=== PATIENT | female | born 1950 | race Hispanic/Latino ===

== ENCOUNTER → 2018-09-07 | Outpatient (CLI) | payer OTHER | END | disposition home or self-care (01) | LOC: OIH 11:01 | PROVIDERS: ATTEND Internal Medicine | DX: I10 Essential (primary) hypertension (principal); M47.815 Spondylosis without myelopathy or radiculopathy, thoracolumbar region | CPT/HCPCS: 71046 ==

== ENCOUNTER → 2019-08-31 | Outpatient (CLI) | payer OTHER | END | disposition home or self-care (01) | LOC: OIH 14:26 | PROVIDERS: ATTEND Internal Medicine | DX: I10 Essential (primary) hypertension (principal) | CPT/HCPCS: 71046 ==

== ENCOUNTER → 2019-11-07 | Outpatient (CLI) | payer OTHER | END | disposition home or self-care (01) | LOC: OIH 12:54 | PROVIDERS: ATTEND Internal Medicine | DX: R05 Cough (principal) | CPT/HCPCS: 71046 ==

== ENCOUNTER → 2020-01-11 | Outpatient (CLI) | payer OTHER | END | disposition home or self-care (01) | LOC: OIH 10:30 | PROVIDERS: ATTEND Internal Medicine | DX: M48.02 Spinal stenosis, cervical region (principal); M54.12 Radiculopathy, cervical region; M40.40 Postural lordosis, site unspecified; M25.78 Osteophyte, vertebrae | CPT/HCPCS: 72040 ==

== ENCOUNTER → 2022-03-25 | Outpatient (CLI) | payer OTHER ==
[~2022-03-25] MED LIST: REGADENOSON 0.4 MG/5 ML PF SYG IVP SCH
== END | disposition home or self-care (01) ==
LOC: RAH 09:03
PROVIDERS: ATTEND Internal Medicine
DX: I20.8 Other forms of angina pectoris (principal); I20.9 Angina pectoris, unspecified
CPT/HCPCS: 78452; 96374; 93017; J2785; A9500 ×2

== ENCOUNTER 2022-04-17 02:00 | Observation (INO) | payer OTHER ==
[~2022-04-17] VITALS: Ht 154.9 cm; Wt 65.8 kg
[2022-04-17 02:25] LABS: BASOPHILS % (AUTO) 1.3 % (0.0-5.0); EOSINOPHILS % (AUTO) 8.7 % (0.0-8.0); HEMATOCRIT 35.8 % (36-48); MEAN CORPUSCULAR HEMOGLOBIN 30.2 pg (27.0-33.0); MEAN CORPUSCULAR HGB CONC 33.2 g/dL (32.0-36.0); MEAN CORPUSCULAR VOLUME 90.9 fL (79-99); MONOCYTES % (AUTO) 7.6 % (3.0-13.0); NEUTROPHILS % (AUTO) 33.2 % (40.0-77.0); PLATELET COUNT (AUTO) 221 K/uL (130-400); RED BLOOD CELL COUNT(AUTO) 3.94 MIL/uL (4.00-5.50); RED CELL DISTRIBUTION WIDTH 13.3 % (11.0-15.5); WHITE BLOOD COUNT (AUTO) 9.9 K/uL (4.8-10.8)
[2022-04-17] MEDS ORDERED: ASPIRIN 81MG CHEW TAB PO ONE (02:30)
[2022-04-17 02:33] LABS: CREATININE 1.1 mg/dL (0.5-1.5); POTASSIUM 3.8 mmol/L (3.5-5.1)
[2022-04-17 02:36] LABS: INR 0.93 (0.85-1.15); PROTHROMBIN TIME 9.9 SEC (9.6-11.6)
[2022-04-17 02:37] LABS: ALBUMIN 3.7 g/dL (3.5-5.0)
[2022-04-17] MEDS ORDERED: OMEG-148 PO (03:38)
[2022-04-17] MEDS ORDERED: AMLO-257 PO (03:38)
[2022-04-17] MEDS ORDERED: SPIR25TA PO (03:38)
[2022-04-17] MEDS ORDERED: LISI10TA24 PO (03:38)
[2022-04-17] MEDS ORDERED: ROSU10TA28 PO (03:38)
[2022-04-17] MEDS ORDERED: MORPHINE 2 MG SYG IVP PRN (04:30)
[2022-04-17] MEDS ORDERED: ONDANSETRON 4MG INJ IVP PRN (04:30)
[2022-04-17 05:11] VITALS: BP 165/81
[2022-04-17 05:43] LABS: APPEARANCE,URINE CLEAR (CLEAR); BILIRUBIN,URINE NEGATIVE (NEGATIVE); COLOR,URINE YELLOW (YELLOW); GLUCOSE, URINE (UA) NEGATIVE (NEGATIVE); KETONES,URINE NEGATIVE (NEGATIVE); LEUKOCYTE ESTERASE ,URINE TRACE (NEGATIVE); NITRATE,URINE NEGATIVE (NEGATIVE); OCCULT BLOOD,URINE NEGATIVE (NEGATIVE); PROTEIN,URINE NEGATIVE (NEGATIVE); UROBILINOGEN,URINE 0.2 mg/dL (0.2-1.0)
[2022-04-17 05:55] LABS: RBC,URINE None Seen /HPF (0-1)
[2022-04-17 05:56] LABS: BACTERIA,URINE None Seen /HPF (None Seen); SQUAMOUS EPITHELIAL CELL,UR Rare /HPF (0-2)
[2022-04-17 07:11] VITALS: BP 150/59
[2022-04-17] MEDS ORDERED: ENOXAPARIN SODIUM 60 MG/0.6 ML SQ SCH (09:00)
[2022-04-17] MEDS ORDERED: LISINOPRIL 10 MG TABLET PO SCH (09:00)
[2022-04-17] MEDS ORDERED: CLOPIDOGREL 75MG TAB PO SCH (09:00)
[2022-04-17] MEDS ORDERED: AMLODIPINE 5 MG TAB PO SCH (09:00)
[2022-04-17] MEDS ORDERED: ASPIRIN 81 MG EC TAB PO SCH (09:00)
[2022-04-17] MEDS ORDERED: FISH OIL 1000 MG/CAP PO SCH (09:00)
[2022-04-17] MEDS ORDERED: SPIRONOLACTONE 25 MG TAB PO SCH (09:00)
[2022-04-17] MEDS ORDERED: ATORVASTATIN 20 MG TABLET PO SCH (09:00)
[2022-04-17 12:15] VITALS: BP 130/47
== END 2022-04-17 13:44 | disposition home or self-care (01) ==
LOC: EDH 02:00 → INTOOBSV 03:21 → EDHIP 03:21 → 4DH 04:48
PROVIDERS: ADMIT Internal Medicine; ATTEND Internal Medicine
DX: R07.89 Other chest pain (principal); I24.9 Acute ischemic heart disease, unspecified; I10 Essential (primary) hypertension; I25.10 Atherosclerotic heart disease of native coronary artery without angina pectoris; E78.00 Pure hypercholesterolemia, unspecified; E78.5 Hyperlipidemia, unspecified; Z90.710 Acquired absence of both cervix and uterus; Z79.01 Long term (current) use of anticoagulants
CPT/HCPCS: 99285; 71045; 96372; 82550; 83874; 84484 ×2; 80053; 85025; 85610; 81001; 36415; 93005 ×2; G0378; J1650

== ENCOUNTER 2022-05-05 08:15 | Day surgery (SDC) | payer OTHER ==
[2022-04-30 14:34] LABS: BASOPHILS % (AUTO) 1.1 % (0.0-5.0); HEMATOCRIT 38.4 % (36-48); LYMPHOCYTES % (AUTO) 32.5 % (21.0-51.0); MEAN CORPUSCULAR HEMOGLOBIN 30.4 pg (27.0-33.0); MEAN CORPUSCULAR HGB CONC 32.6 g/dL (32.0-36.0); MEAN CORPUSCULAR VOLUME 93.4 fL (79-99); MONOCYTES % (AUTO) 9.3 % (3.0-13.0); NEUTROPHILS % (AUTO) 48.9 % (40.0-77.0); PLATELET COUNT (AUTO) 238 K/uL (130-400); RED BLOOD CELL COUNT(AUTO) 4.11 MIL/uL (4.00-5.50); RED CELL DISTRIBUTION WIDTH 13.5 % (11.0-15.5); WHITE BLOOD COUNT (AUTO) 8.4 K/uL (4.8-10.8)
[2022-04-30 14:38] LABS: APPEARANCE,URINE CLEAR (CLEAR); BILIRUBIN,URINE NEGATIVE (NEGATIVE); COLOR,URINE LIGHT-YELLOW (YELLOW); GLUCOSE, URINE (UA) NEGATIVE (NEGATIVE); KETONES,URINE NEGATIVE (NEGATIVE); LEUKOCYTE ESTERASE ,URINE 25 Leu/uL (NEGATIVE); NITRATE,URINE NEGATIVE (NEGATIVE); OCCULT BLOOD,URINE NEGATIVE (NEGATIVE); PH,URINE 5.5 (5.0-8.0); PROTEIN,URINE NEGATIVE (NEGATIVE); UROBILINOGEN,URINE 0.2 mg/dL (0.2-1.0)
[2022-04-30 14:42] LABS: MUCUS,URINE RARE LPF (None Seen); RBC,URINE 0-1 /HPF (0-1); WBC,URINE 0-1 /HPF (0-1)
[2022-04-30 14:51] LABS: INR 0.93 (0.85-1.15); PROTHROMBIN TIME 10.2 SEC (9.6-11.6)
[2022-04-30 14:53] LABS: PARTIAL THROMBOPLASTIN TIME 26.9 SEC (26.3-35.5)
[2022-04-30 15:09] LABS: CREATININE 1.2 mg/dL (0.5-1.5); POTASSIUM 3.7 mmol/L (3.5-5.1)
[2022-04-30 15:14] LABS: B-TYPE NATRIURETIC PEPTIDE 151 pg/mL (0-100)
[2022-05-04 10:24] VITALS: BP 157/51
[2022-05-05] VITALS (9 sets, daily range): BP systolic 113–139; BP diastolic 43–58
[~2022-05-05] VITALS: Ht 154.9 cm; Wt 68.9 kg
[~2022-05-05 08:15] MED LIST changes: +AMLO-257 PO; +ASPI-1443 PO; +CHOL200013 PO; +CYAN-35 PO; +OLME20TA22 PO; +OMEG-148 PO; -REGADENOSON 0.4 MG/5 ML PF SYG IVP SCH; +ROSU10TA28 PO; +SPIR25TA PO; +VITA200T8 PO; +[UNRECOGNIZED DRUG - OTHER] PO
[2022-05-05] MEDS ORDERED: 0.9%NACL 1000ML 1,000 ML IV ONE (08:28)
[2022-05-05] MEDS ORDERED: ONDA4TAB10 PO (09:36)
[2022-05-05] MEDS ORDERED: PANT40TA54 PO (09:36)
[2022-05-05] MEDS ORDERED: MIDAZOLAM HCL 5 MG/ML 2ML VIAL IV ONE (10:24)
[2022-05-05] MEDS ORDERED: LIDOCAINE HCL 1% 10 ML VIAL ONE (10:24)
[2022-05-05] MEDS ORDERED: FENTANYL CITRATE PF 50 MCG/1 ML 2ML VIAL ONE (10:24)
[2022-05-05] MEDS ORDERED: IOHEXOL 350 MG/ML 100ML INFUS..BTL IV ONE (10:24)
[2022-05-05] MEDS ORDERED: NITROGLYCERIN 50MG VIAL ONE (10:24)
[2022-05-05] MEDS ORDERED: IOHEXOL-350 50ML VIAL IV ONE (10:24)
[2022-05-05] MEDS ORDERED: HEPARIN 10,000 UNIT/10ML (1,000 UNIT/ML) VIAL ONE (11:40)
[2022-05-05] MEDS ORDERED: 0.9%NACL 1000ML 1,000 ML IV SCH (12:30)
[2022-05-05 13:38] LABS: CHOLESTEROL 83 mg/dL (<200); HDL CHOLESTEROL 38 mg/dL (35-85); LDL DIRECT 43 mg/dL (0-99); TRIGLYCERIDES 19 mg/dL (30-200)
[2022-05-05] MEDS ORDERED: ISOS60TA77 PO (14:33)
== END 2022-05-05 15:57 | disposition home or self-care (01) ==
LOC: DAH 08:15
PROVIDERS: ATTEND Internal Medicine Cardiovascular Disease
DX: I25.110 Atherosclerotic heart disease of native coronary artery with unstable angina pectoris (principal); I10 Essential (primary) hypertension; E78.5 Hyperlipidemia, unspecified; R94.31 Abnormal electrocardiogram [ECG] [EKG]; I25.2 Old myocardial infarction; E78.00 Pure hypercholesterolemia, unspecified; Z79.01 Long term (current) use of anticoagulants; Z79.899 Other long term (current) drug therapy; Z79.82 Long term (current) use of aspirin; Z72.89 Other problems related to lifestyle; Z98.890 Other specified postprocedural states
CPT/HCPCS: 80048; 83880; 85025; 85610; 85730; 81001; 36415 ×2; 71045; 93458; 80061; 93571; 93572; C1887; C1894 ×2; C1760; C1769; J3010; J7030; J1644 ×2; J3490 ×2; J2250; Q9967 ×2; A4215; A4222; A4221; A4663; A4216; A4606; Q9965 ×2; A4223 ×3; 93005; 96360; 96361; 99156; 99157

== ENCOUNTER → 2023-11-11 | Outpatient (CLI) | payer OTHER ==
[~2023-11-11] MED LIST changes: +ISOS60TA77 PO; -OLME20TA22 PO; +OLME20TA68 PO; +ONDA4TAB10 PO; +PANT40TA54 PO
== END | disposition home or self-care (01) ==
LOC: OIH 15:33
PROVIDERS: ATTEND Internal Medicine
DX: M47.22 Other spondylosis with radiculopathy, cervical region (principal)
CPT/HCPCS: 72040